=== PATIENT | male | born 1945 | race American Indian/Alaskan Native ===

== ENCOUNTER 2018-03-07 09:18 | Outpatient (CLI) | payer MEDICARE ==
--- NOTE | 2018-03-07 10:25 | XRay Report ---
RIGHT CALCANEUS RADIOGRAPHS INDICATION: Fracture of right calcaneus. COMPARISON: None similar at this institution. FINDINGS: AP and lateral views demonstrate mild patchy sclerosis along an oblique calcaneal fracture through the mid body. Subtle fracture extension to the subtalar joint also not excluded. Intact remainder exam. Possible osteopenia. CONCLUSION: Right calcaneal fracture with some sclerosis/possible healing, as described. Please also correlate clinically and with prior radiographs, if available. Thank you for the opportunity to participate in this patient's care.
== END 2018-03-07 09:19 | disposition home or self-care (01) ==
LOC: XRAY 09:18
PROVIDERS: ATTEND Orthopaedic Surgery
DX: S92.001A Unspecified fracture of right calcaneus, initial encounter for closed fracture (principal); X58.XXXA Exposure to other specified factors, initial encounter; Y93.89 Activity, other specified; Y92.89 Other specified places as the place of occurrence of the external cause; Y99.8 Other external cause status

== ENCOUNTER 2018-04-17 09:39 | Outpatient (CLI) | payer MEDICARE ==
--- NOTE | 2018-04-17 10:10 | XRay Report ---
RIGHT CALCANEUS, 2 VIEWS History: Pain in right foot. Findings: The comminuted right calcaneus fracture appears unchanged in position and alignment since 03/07/18. Mild calcified callus is identified although fracture lines remain evident. The soft tissues are unremarkable. Impression: Healing, comminuted right calcaneus fracture. No overwhelming change since 03/07/18.
== END 2018-04-17 09:40 | disposition home or self-care (01) ==
LOC: XRAY 09:39
PROVIDERS: ATTEND Orthopaedic Surgery
DX: M25.774 Osteophyte, right foot (principal); S92.001D Unspecified fracture of right calcaneus, subsequent encounter for fracture with routine healing; F17.200 Nicotine dependence, unspecified, uncomplicated; X58.XXXD Exposure to other specified factors, subsequent encounter